=== PATIENT | male | born 1980 | race Caucasian/White ===

== ENCOUNTER 2017-12-04 23:21 | Emergency (ER) | payer SELFPAY ==
[~2017-12-04] VITALS: Ht 185.4 cm; Wt 104.8 kg
[2017-12-04 23:27] VITALS: Ht 185.4 cm; Wt 104.8 kg
[2017-12-05 01:17] VITALS: BP 127/77
== END 2017-12-05 01:41 | disposition other institution (70) ==
LOC: ED 23:21
DX: S02.2XXA Fracture of nasal bones, initial encounter for closed fracture (principal); S02.32XA Fracture of orbital floor, left side, initial encounter for closed fracture; W51.XXXA Accidental striking against or bumped into by another person, initial encounter; Y93.89 Activity, other specified; Y92.89 Other specified places as the place of occurrence of the external cause; Y99.8 Other external cause status

== ENCOUNTER 2017-12-04 23:21 | Emergency (ER) | payer OTHER | END 2017-12-05 01:41 | disposition other institution (70) | LOC: ED 23:21 | DX: Z02.89 Encounter for other administrative examinations (principal) ==